=== PATIENT | female | born 1945 | race Caucasian/White ===

== ENCOUNTER 2018-10-13 20:38 | Emergency (ER) | payer MEDICARE, OTHER ==
--- NOTE | 2018-10-13 21:06 | EDM.PDOC ---
ED HPI GENERAL MEDICAL PROBLEM - General Chief Complaint: Abdominal Pain Stated Complaint: ABDOMINAL PAIN Time Seen by Provider: 10/13/18 20:42 Source of Information: Reports: Patient History Limitations: Reports: No Limitations - History of Present Illness INITIAL COMMENTS - FREE TEXT/NARRATIVE: This is a 73-year-old female. Onset this morning after she woke up with some mid abdominal cramping and sharp pain. It comes and goes it waxes and wanes. She says she's been having good bowel movements today effects several and some of them were somewhat loose stools. She did notice yesterday that her stomach was growling a lot and she had not noticed before. Today she is passed gas. She' s had no nausea or vomiting no fever. She's had no surgeries or abdomen and denies any urinary symptoms. She says she takes prunes for her constipation. Because of the abdominal cramping that is continued she comes to the ER for evaluation. She denies any other acute symptoms and does not appear to be in distress. Lower Abdomen Pain Score (Numeric/FACES): 3 - Related Data Allergies Allergy/AdvReac Type Severity Reaction Status Date / Time No Known Allergies Allergy Verified 10/13/18 20:50 Home Meds: Home Meds Dicyclomine [Bentyl] 10 mg PO Q6H PRN #12 cap 10/13/18 [Rx] Past Medical History - Past Surgical History HEENT Surgical History: Reports: Tonsillectomy Social & Family History - Tobacco Use Smoking Status *Q: Current Every Day Smoker Years of Tobacco use: 20 Packs/Tins Daily: 0.7 - Caffeine Use Caffeine Use: Reports: Coffee, Soda - Recreational Drug Use Recreational Drug Use: No ED ROS GENERAL - Review of Systems Review Of Systems: See Below Constitutional: Denies: Fever, Chills HEENT: Reports: No Symptoms Respiratory: Reports: No Symptoms Cardiovascular: Denies: Chest Pain Endocrine: Reports: No Symptoms GI/Abdominal: Reports: Abdominal Pain. Denies: Constipation, Diarrhea, Nausea, Vomiting : Reports: No Symptoms Musculoskeletal: Reports: No Symptoms Skin: Reports: No Symptoms Neurological: Reports: No Symptoms Psychiatric: Reports: No Symptoms Hematologic/Lymphatic: Reports: No Symptoms ED EXAM, GI/ABD - Physical Exam Exam: See Below Exam Limited By: No Limitations General Appearance: Alert, WD/WN, No Apparent Distress Eyes: Bilateral: Normal Appearance Ears: Normal External Exam Nose: Normal Inspection Throat/Mouth: Normal Inspection, Normal Lips, Normal Voice, No Airway Compromise Head: Normocephalic Neck: Supple Respiratory/Chest: No Respiratory Distress, Lungs Clear, Normal Breath Sounds Cardiovascular: Regular Rate, Rhythm, No Murmur GI/Abdominal Exam: Soft, Other (She appears to be slightly distended but palpation of the abdomen does not suggest any localized pain, bowel sounds are positive.) Back Exam: Full Range of Motion Extremities: Normal Inspection, Normal Range of Motion Neurological: Alert, Oriented Psychiatric: Normal Affect, Normal Mood Skin Exam: Warm, Dry Course - Vital Signs Last Recorded V/S: Last Vital Signs Temp 97.9 F 10/13/18 20:48 Pulse 78 10/13/18 20:48 Resp 16 10/13/18 20:48 BP 160/100 H 10/13/18 20:48 Pulse Ox 94 L 10/13/18 20:48 - Orders/Labs/Meds Orders: Active Orders 24 hr Category Date Time Status Abdomen 2V AP Flat Upright [CR] Stat Exams 10/13/18 20:59 Taken Labs: Laboratory Tests 10/13/18 10/13/18 10/13/18 Range/Units 21:13 21:13 23:05 WBC 9.47 (3.98-10.04) K/mm3 RBC 5.50 H (3.98-5.22) M/mm3 Hgb 15.2 (11.2-15.7) gm/L Hct 46.5 H (34.1-44.9) % MCV 84.5 (79.4-94.8) fl MCH 27.6 (25.6-32.2) pg MCHC 32.7 (32.2-35.5) g/dl RDW Std Deviation 46.9 H (36.4-46.3) fL Plt Count 319 (182-369) K/mm3 MPV 10.1 (9.4-12.3) fl Neut % (Auto) 72.5 H (34.0-71.1) % Lymph % (Auto) 17.5 L (19.3-51.7) % [place] % (Auto) 6.9 (4.7-12.5) % Eos % (Auto) 2.3 (0.7-5.8) Baso % (Auto) 0.7 (0.1-1.2) % Neut # (Auto) 6.86 H (1.56-6.13) K/mm3 Lymph # (Auto) 1.66 (1.18-3.74) K/mm3 Greenlee # (Auto) 0.65 H (0.24-0.36) K/mm3 Eos # (Auto) 0.22 (0.04-0.36) K/mm3 Baso # (Auto) 0.07 (0.01-0.08) K/mm3 Sodium 140 (136-145) mEq/L Potassium 3.8 (3.5-5.1) mEq/L Chloride 104 (98-107) mEq/L Carbon Dioxide 25 (21-32) mEq/L Anion Gap 14.8 (5-15) BUN 18 (7-18) mg/dL Creatinine 0.8 (0.55-1.02) mg/dL Est Cr Clr Drug Dosing 54.39 mL/min Estimated GFR (MDRD) > 60 (>60) mL/min BUN/Creatinine Ratio 22.5 H (14-18) Glucose 125 H (83-115) mg/dL Calcium 9.2 (8.5-10.1) mg/dL Total Bilirubin 0.5 (0.2-1.0) mg/dL AST 19 (15-37) U/L ALT 21 (14-59) U/L Alkaline Phosphatase 131 H (46-116) U/L Total Protein 7.4 (6.4-8.2) g/dl Albumin 3.4 (3.4-5.0) g/dl Globulin 4.0 gm/dL Albumin/Globulin Ratio 0.9 L (1-2) Urine Color Yellow (Yellow) Urine Appearance Clear (Clear) Urine pH 5.5 (5.0-8.0) Ur Specific [place] > or = 1.030 (1.005-1.030) Urine Protein 1+ H (Negative) Urine Glucose (UA) Negative (Negative) Urine Ketones Negative (Negative) Urine Occult Blood 1+ H (Negative) Urine Nitrite Negative (Negative) Urine Bilirubin Negative (Negative) Urine Urobilinogen 0.2 (0.2-1.0) Ur Leukocyte Esterase Negative (Negative) Urine RBC 0-5 (0-5) /hpf Urine WBC 0-5 (0-5) /hpf Ur Squamous Epith Cells 0-5 (0-5) /hpf Urine Bacteria Few (FEW) /hpf Urine Mucus Moderate H (FEW) /hpf - Radiology Interpretation Free Text/Narrative:: Flat and upright did not show any acute changes or obstruction - Re-Assessments/Exams Free Text/Narrative Re-Assessment/Exam: 10/13/18 23:25 I spoke to the patient regarding the x-ray results and the blood work. This would suggest this is a functional irritation in her abdomen possibly a viral infection is causing her abdominal cramping but we do not see anything more serious at this time. If she continues to have problems or they worsen or she develops a fever greater than 101 she is to see her family doctor or return to the ER. Departure - Departure Time of Disposition: 23:29 Disposition: Home, Self-Care 01 Condition: Good Clinical Impression: Abdominal cramps - Discharge Information *PRESCRIPTION DRUG MONITORING PROGRAM REVIEWED*: Not Applicable *COPY OF PRESCRIPTION DRUG MONITORING REPORT IN PATIENT [place]: Not Applicable Prescriptions: Dicyclomine [Bentyl] 10 mg PO Q6H PRN #12 cap PRN Reason: Abdominal Pain Instructions: Viral Gastroenteritis, Adult, [id number] Referrals: Kareem Bradford MD [Primary Care Provider] - Forms: ED Department Discharge Additional Instructions: Drink lots of fluids, stick to foods that are easy to digest and avoid spices, consider that you will have some more loose stools or maybe even some diarrhea, take the medication as needed for the abdominal cramps, if you should develop a fever greater than 101 or your symptoms markedly worsen return to the ER, follow up with your family doctor later this week for recheck - My Orders Last 24 Hours: My Active Orders 10/13/18 20:59 Abdomen 2V AP Flat Upright [CR] Stat - Assessment/Plan Last 24 Hours: My Active Orders 10/13/18 20:59 Abdomen 2V AP Flat Upright [CR] Stat
--- NOTE | 2018-10-14 17:55 | CR ---
Abdomen: Supine and upright views of the abdomen were obtained. Comparison: No previous study. Scoliosis and mild degenerative change are noted within the spine. No free air is seen. Bowel gas pattern is unremarkable. Mild superior joint space narrowing is noted within the right hip. Calcifications are seen within the pelvis which are compatible with phleboliths. Impression: 1. Incidental findings. Nothing acute is seen on two-view abdominal x-ray. Diagnostic code #2 I agree with preliminary report from [facility], finalized on 10/13/18, 10:40 PM Central Time
== END 2018-10-13 23:41 | disposition home or self-care (01) ==
LOC: JD.ED 20:38
DX: R10.9 Unspecified abdominal pain (principal); R50.9 Fever, unspecified; F17.210 Nicotine dependence, cigarettes, uncomplicated
CPT/HCPCS: 36415; 74019; 74019-26; 80053; 81001; 85025; 99283; 99284-25

== ENCOUNTER 2024-07-27 19:30 | Emergency (ER) | payer MEDICARE, OTHER ==
[2024-07-27] MEDS: Meclizine 25 MG Tab PO ONE (21:59)
== END 2024-07-27 21:59 | disposition home or self-care (01) ==
LOC: JD.ED 19:30
DX: S06.0X0A Concussion without loss of consciousness, initial encounter (principal); Z79.899 Other long term (current) drug therapy; W01.198A Fall on same level from slipping, tripping and stumbling with subsequent striking against other object, initial encounter; Y93.89 Activity, other specified
CPT/HCPCS: 70450; 99283; A9270